=== PATIENT | male | born 1995 | race Caucasian/White ===

== ENCOUNTER 2017-07-06 16:21 | Emergency (ER) | payer OTHER ==
[~2017-07-06] VITALS: Ht 185.4 cm; Wt 60.4 kg
[2017-07-06 16:26] VITALS: BP 130/73; TEMP 100.2
[2017-07-06 17:44] LABS: STREP SCREEN NEGATIVE
[2017-07-06 17:51] LABS: INFLUENZA A NEGATIVE; INFLUENZA B POSITIVE
[2017-07-06 19:16] VITALS: PULSE 111
== END 2017-07-06 19:16 | disposition home or self-care (01) ==
LOC: COL.ER 16:21
PROVIDERS: Nurse Practitioner
DX: J11.1 Influenza due to unidentified influenza virus with other respiratory manifestations (principal)
CPT/HCPCS: J7030

== ENCOUNTER 2017-10-03 19:04 | Emergency (ER) | payer OTHER ==
[~2017-10-03] VITALS: Ht 185.4 cm; Wt 61.4 kg
[2017-10-03 19:09] VITALS: BP 120/74; PULSE 83; TEMP 97.9
== END 2017-10-03 19:39 | disposition home or self-care (01) ==
LOC: COL.ER 19:04
DX: T22.211A Burn of second degree of right forearm, initial encounter (principal); T31.0 Burns involving less than 10% of body surface; X10.2XXA Contact with fats and cooking oils, initial encounter

== ENCOUNTER 2018-01-09 20:45 | Emergency (ER) | payer OTHER ==
[~2018-01-09] VITALS: Ht 185.4 cm; Wt 61.4 kg
[2018-01-09 20:50] VITALS: TEMP 97.5
[2018-01-09 21:27] LABS: BASO % 0.4 % (0.0-2.0); EOS # 0.2 (0.0-0.7); GRAN # 4.6 (1.4-6.5); GRAN % 58.3 % (42.2-75.2); HEMATOCRIT 45.7 % (36.0-47.0); HEMOGLOBIN 15.9 g/dl (12.5-16.1); LYMPH # 2.5 (1.2-3.4); LYMPH % 32.4 % (20.0-51.0); MEAN CELL VOLUME 85 fl (80.0-95.0); MEAN CORPUSCULAR HEMOGLOBIN 29 pg (26.0-32.0); MEAN CORPUSCULAR HGB CONC 35 g/dl (33.0-37.0); MEAN PLATELET VOLUME 9.7 fl (7.4-10.4); MONO # 0.5 (0.1-0.6); MONO % 6.8 % (1.7-9.3); PLATELET COUNT 349 K/mm3 (130-400); REDCELL DISTRIBUTION WIDTH-CV 12.6 % (11.5-14.5)
[2018-01-09 21:39] LABS: ALBUMIN 4.5 gm/dL (3.5-5.0); BILIRUBIN,TOTAL 0.6 mg/dL (0.0-1.0); CALCIUM 9.4 mg/dL (8.4-10.2); CREATININE, serum 0.94 mg/dL (0.66-1.25); TOTAL PROTEIN 7.2 gm/dL (6.4-8.2)
[2018-01-09 22:49] VITALS: BP 112/62; PULSE 74
== END 2018-01-09 22:50 | disposition home or self-care (01) ==
LOC: COL.ER 20:45
PROVIDERS: Nurse Practitioner
DX: R55 Syncope and collapse (principal); G43.909 Migraine, unspecified, not intractable, without status migrainosus; F17.210 Nicotine dependence, cigarettes, uncomplicated
CPT/HCPCS: J1885; J7030

== ENCOUNTER 2018-12-10 19:00 | Emergency (ER) | payer SELFPAY ==
[~2018-12-10] VITALS: Ht 185.4 cm; Wt 61.4 kg
[2018-12-10 19:06] VITALS: BP 131/78; TEMP 99.1
[2018-12-10] MEDS ORDERED: CILOXAN 5 ML5 ML OD (22:00)
[2018-12-10 22:06] VITALS: PULSE 80
== END 2018-12-10 22:06 | disposition home or self-care (01) ==
LOC: COL.ER 19:00
DX: S05.11XA Contusion of eyeball and orbital tissues, right eye, initial encounter (principal); W50.0XXA Accidental hit or strike by another person, initial encounter; Y92.34 Swimming pool (public) as the place of occurrence of the external cause

== ENCOUNTER → 2020-01-15 | Outpatient (CLI) | payer SELFPAY ==
[~2020-01-15] MED LIST: CILOXAN 5 ML5 ML OD
== END ==
LOC: ZCOL.LAB 17:49
DX: R53.83 Other fatigue (principal); R50.9 Fever, unspecified; M79.10 Myalgia, unspecified site; Z20.828 Contact with and (suspected) exposure to other viral communicable diseases